=== PATIENT | male | born 1975 | race Two or more races ===

== ENCOUNTER 2018-12-24 07:26 | Inpatient (IN) | payer OTHER ==
[2018-12-24 07:43] VITALS: BMI 34.3
[2018-12-24] MEDS ORDERED: KETOROLAC TROMETHAMINE 30 MG/1 ML VIAL IM ONE (08:08)
[2018-12-24] MEDS ORDERED: LIDOCAINE 5% TOPICAL PATCH TP ONE (08:08)
[2018-12-24] MEDS ORDERED: LIDOCAINE 5% TOPICAL PATCH ONE (08:14)
--- NOTE | 2018-12-24 08:14 | PDOC ---
History of Present Illness - General Chief Complaint: Back Pain Stated Complaint: BACK PAIN Time Seen by Provider: 12/24/18 07:41 Exam Limitations: Language Barrier (Anguillan speaking only) - History of Present Illness Initial Comments: 12/24/18 08:08 43 yo M PMH appendicitis 3 years ago s/p appendectomy, sciatica diagnosed 4 years ago, coming in with L lower back pain shooting down his L leg. Primarily Anguillan speaking, little [place]. States that it feels like his normal sciatica pain but much more intense for the last 3 days, with 3 days of worsening pain before that. Apparently lifted some concrete 6 days ago. Went to [facility] yesterday where they have him Percocet and methylprednisolone. Patient states that he took the Percocet and it did not help at all, however he was worried the steroids were "like the ones for muscle building" and did not understand why they were prescribed, so he did not take them. Reports pain all the way in his toes, and can't move any part of his L leg without triggering terrible pain. Has been sleeping on his R side. Denies fevers/chills, constipation/diarrhea, urinary issues, IV drug use, weakness, loss of sensation. Endorses tingling and burning pain in his L toes. Past History - Past Medical History Allergies/Adverse Reactions: Allergies Allergy/AdvReac Type Severity Reaction Status Date / Time No Known Allergies Allergy Verified 12/24/18 07:43 COPD: No - Psycho Social/Smoking Cessation Hx Smoking History: Never smoked Have you smoked in the past 12 months: No Information on smoking cessation initiated: No Hx Alcohol Use: No Drug/Substance Use Hx: No Review of Systems - Review of Systems Constitutional: No: Chills, Diaphoresis, Fever HEENTM: No: Recent change in vision, Throat Pain, Mouth Swelling Respiratory: No: Cough, Shortness of Breath Cardiac (ROS): No: Chest Pain, Edema, Irregular Heart Rate, Lightheadedness, Palpitations, Syncope, Chest Tightness ABD/GI: No: Blood Streaked Bowels, Constipated, Diarrhea, Nausea, Rectal Bleeding, Vomiting : No: Burning, Dysuria, Discharge, Frequency, Flank Pain, Hematuria, Incontinence Musculoskeletal: Yes: Back Pain (L lower back, shooting down L leg). No: Neck Pain Neurological: Yes: Paresthesia (L toes). No: Headache, Weakness, Dizziness *Physical Exam - Vital Signs Last Vital Signs Temp Pulse Resp BP Pulse Ox 98 F 74 16 126/90 100 12/24/18 07:26 12/24/18 07:26 12/24/18 07:26 12/24/18 07:26 12/24/18 07:26 - Physical Exam Comments: 12/24/18 08:27 Gen: well-developed, well-nourished, appears to be in distress Neuro: AAOX4, CN II-XII intact, FTN intact, EOMI, PERRLA, sensation intact in all extremities. Significant pain with passive movement of any part of L leg, through to the toes HEENT: atraumatic, normocephalic, dry mucous membranes Neck: trachea midline, supple CV: regular rate, regular rhythm, no murmurs, rubs, or gallops Pulm: CTA b/l, no wheezing Abd: soft, non-distended, mild ttp in RLQ MSK: not moving L leg 2/2 pain, significant tenderness in L gluteus, intact pulses Extr: no edema, no deformities Skin: warm, dry ED Treatment Course - LABORATORY CBC & Chemistry Diagram: 12/24/18 10:39 12/24/18 10:39 Medical Decision Making - Medical Decision Making 12/24/18 08:30 Concern for worsened sciatica v muscle spasm. - have patient take prescribed steroid - toradol 30mg IM - lidocaine patch - reassess 12/24/18 09:42 Patient reassessed, pain improved, however, still unable to move L leg without significant pain. 12/24/18 10:09 Lumbar X ray without acute fracture. 12/24/18 11:36 Na 135 and WBC 12.2, otherwise unremarkable. 12/24/18 12:20 Spoke with hospitalist, patient will be admitted. Discharge - Discharge Information Problems reviewed: Yes Clinical Impression/Diagnosis: Neuropathy - Follow up/Referral - Patient Discharge Instructions - Post Discharge Activity
[2018-12-24] MEDS ORDERED: KETOROLAC TROMETHAMINE 30 MG/1 ML VIAL ONE (08:15)
--- NOTE | 2018-12-24 09:47 | PDOC ---
Attending Attestation - Resident Resident Name: Fransisco Calloway - ED Attending Attestation I have performed the following: I have examined & evaluated the patient, The case was reviewed & discussed with the resident, I agree w/resident's findings & plan - HPI HPI: 12/24/18 09:42 43-year-old male with history of lumbar radiculopathy recurring intermittently in the past, seen by shredding specialist and recommended for surgery but never had any interventions, presents now for persistent and worsening left low back pain with left leg radiation and paresthesias for the last week. Patient states he did some heavy lifting last week, started having some gradual onset and mild left low back pain about 6 days ago, was seen at outside urgent care and prescribed Percocet and Medrol Dosepak, minimal and temporary relief with Percocet but not taking the steroids, presents now for worsening symptoms and pain, inability to stand or ambulate since yesterday. No bowel or bladder issues, no direct injury, no fevers or chills. - Physicial Exam PE: 12/24/18 09:44 Vital signs normal Alert, seated in stretcher, mild distress secondary to left low back pain Heart and lungs are clear, abdomen benign No midline spine tenderness, some reproducible tenderness to the left low back without swelling or bruising 4 out of 5 strength of the left hip and knee, question limited by pain. 5 out of 5 plantar and dorsiflexion of the left foot. Sensation decreased distally, neurovascularly intact otherwise. - Medical Decision Making 12/24/18 09:45 43-year-old male with exacerbation of likely acute on chronic left lumbar radiculopathy, positive associated paresthesias and weakness, possibly pain related versus compression. No evidence of cord compression, no direct injury, no fevers or chills. Spine imaging Pain control We will need to reassess, if patient remains unable to ambulate and with decreased strength, may need admission for more acute evaluation with MRI and intervention. 12/24/18 11:43 minimal relief after meds, unable to stand/walk. Will proceed with admission, pain management and spine consults.
[2018-12-24] MEDS ORDERED: diazePAM 5 MG TABLET PO ONE (10:16)
[2018-12-24] MEDS ORDERED: diazePAM 5 MG TABLET ONE (10:27)
[2018-12-24 11:22] LABS: BASO % 0.3 % (0-2.0); EOS % 0.5 % (0-4.5); HEMATOCRIT 42.7 % (35.4-49); HEMOGLOBIN 14.9 GM/dL (11.7-16.9); LYMPH % 19.4 % (8-40); MCH 30.9 pg (25.7-33.7); MEAN CELL VOLUME 88.4 fl (80-96); MEAN PLT VOLUME 8.6 fl (7.5-11.1); MONO % 5.6 % (3.8-10.2); NEUT % 74.2 % (42.8-82.8); PLATELET COUNT 307 K/MM3 (134-434); RBC 4.83 M/mm3 (4.00-5.60); RDW 13.1 % (11.9-15.9); WHITE BLOOD COUNT 12.2 K/mm3 (4.0-10.0)
[2018-12-24 11:25] LABS: ALBUMIN 3.8 g/dl (3.4-5.0); BILIRUBIN,TOTAL 1.1 mg/dL (0.2-1); BLOOD UREA NITROGEN 20.2 mg/dL (7-18); CREATININE 1.1 mg/dL (0.55-1.3); POTASSIUM 3.9 mmol/L (3.5-5.1); TOT PROT 7.4 g/dl (6.4-8.2)
[2018-12-24] MEDS ORDERED: ACETAMINOPHEN 325 MG TABLET (FP) PO PRN (15:41)
--- NOTE | 2018-12-24 15:42 | HP ---
CHIEF COMPLAINT: left leg pain, numbness and tingling and inability to ambulate. also severe left leg pain PCP: no pcp HISTORY OF PRESENT ILLNESS: Patient is a 43 year old male with a past medical medical history of back pain , lumbar radiculopathy and appendectomy. He is on no home medications. he comes to the ED today with complaints of inability to ambulate or work secondary to worsening back and left leg pain. He reports that in the past he has seen by a clinical review specialist and was told that he may need surgical interventions but has not yet followed up. 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 Patient went to [facility] and prescribed Percocet and Medrol Dosepak, but only took the percocet with minimal relief. He did not want to take the steriods because he was unsure how they would help him. He denies any trauma or direct injury. He states that he is unable to walk and is only comfortable when he lays on his right side. He denies fever, chills, chest pain, constipation or bowel and bladder incontinence. ER course was notable for: (1) wbc 12.2 (2) unable to move L leg without significant pain. (3) Lumbar X ray without acute fracture. (4) NA 135 Recent Travel: none PAST MEDICAL/Surgical HISTORY: back pain, lumbar radiculopathy and appendectomy Social History: Smoking: denies Alcohol: denies Drugs: denies Allergies No Known Allergies Allergy (Verified 12/24/18 07:43) PHYSICAL EXAMINATION Vital Signs - 24 hr 12/24/18 07:26 Temperature 98 F Pulse Rate 74 Respiratory 16 Rate Blood Pressure 126/90 O2 Sat by Pulse 100 Oximetry (%) GENERAL: Awake, alert, and fully oriented, in no acute distress. HEAD: Normal with no signs of trauma. EYES: Pupils equal, round and reactive to light, extraocular movements intact, sclera anicteric, conjunctiva clear. No lid lag. EARS, NOSE, THROAT: Ears normal, nares patent, oropharynx clear without exudates. Moist mucous membranes. NECK: Normal range of motion, supple without lymphadenopathy, JVD, or masses. LUNGS: Breath sounds equal, clear to auscultation bilaterally. No wheezes, and no crackles. No accessory muscle use. HEART: Regular rate and rhythm, normal S1 and S2 without murmur, rub or gallop. ABDOMEN: Soft, nontender, not distended, normoactive bowel sounds, no guarding, no rebound, no masses. No hepatomegaly or splenomegaly. MUSCULOSKELETAL: Normal range of motion at all joints. No bony deformities or tenderness. No CVA tenderness. UPPER EXTREMITIES: 2+ pulses, warm, well-perfused. No cyanosis. No clubbing. LOWER EXTREMITIES: unable to move left leg without significant pain. mild edema of left foot. NEUROLOGICAL: Normal speech. unable to ambulate 2/2 left leg pain PSYCHIATRIC: Cooperative. Good eye contact. Appropriate mood and affect. Laboratory Results - last 24 hr 12/24/18 12/24/18 10:39 10:39 WBC 12.2 H RBC 4.83 Hgb 14.9 Hct 42.7 MCV 88.4 MCH 30.9 MCHC 35.0 RDW 13.1 Plt Count 307 MPV 8.6 Absolute Neuts (auto) 9.1 H Neutrophils % 74.2 Lymphocytes % 19.4 Monocytes % 5.6 Eosinophils % 0.5 Basophils % 0.3 Nucleated RBC % 0 Sodium 135 L Potassium 3.9 Chloride 100 Carbon Dioxide 28 Anion Gap 8 BUN 20.2 H Creatinine 1.1 Est GFR (CKD-EPI)AfAm 94.79 Est GFR (CKD-EPI)NonAf 81.78 Random Glucose 167 H Calcium 9.0 Total Bilirubin 1.1 H AST 23 ALT 56 Alkaline Phosphatase 79 Total Protein 7.4 Albumin 3.8 ASSESSMENT/PLAN: Problem List - Problem (1) Ambulatory dysfunction Assessment/Plan: Lumbar X ray without acute fracture will order physical therapy manage pain with lidocaine patches, gabapentin, tylenol and ketolorac injections neurosx consulted maintain fall risk precautions. heparin bid Code(s): R26.2 - DIFFICULTY IN WALKING, NOT ELSEWHERE CLASSIFIED (2) Hyperglycemia Assessment/Plan: elevated serum glucose a1c in am Code(s): R73.9 - HYPERGLYCEMIA, UNSPECIFIED (3) Neuropathy Assessment/Plan: start on gabapentin, pain management Code(s): G62.9 - POLYNEUROPATHY, UNSPECIFIED (4) Leukocytosis Assessment/Plan: leukocytosis likely reactive monitor Code(s): D72.829 - ELEVATED WHITE BLOOD CELL COUNT, UNSPECIFIED (5) Prophylactic measure Assessment/Plan: fen tolerates po monitor electrolytes full code heparin bid Code(s): Z29.9 - ENCOUNTER FOR PROPHYLACTIC MEASURES, UNSPECIFIED Visit type - Emergency Visit Emergency Visit: Yes ED Registration Date: 12/24/18 Care time: The patient presented to the Emergency Department on the above date and was hospitalized for further evaluation of their emergent condition. - New Patient This patient is new to me today: Yes Date on this admission: 12/25/18 - Critical Care Critical Care patient: No
[2018-12-24] MEDS: GABAPENTIN 100 MG CAPSULE (FP) PO SCH ×2 (16:19→21:46)
[2018-12-24] MEDS: KETOROLAC TROMETHAMINE 15 MG/ML VIAL IVPUSH PRN ×2 (16:19→23:21)
[2018-12-24] MEDS ORDERED: FLU VACCINE QUAD 60 MCG/0.5 ML (MDV 19-20) IM ONE (17:01)
[2018-12-24 17:24] LABS: PH,URINE 7.5 (5.0-8.0); URINE APPEARANCE CLEAR; URINE BILIRUBIN NEGATIVE (NEGATIVE); URINE COLOR YELLOW; URINE GLUCOSE (UA) NEGATIVE (NEGATIVE); URINE KETONE NEGATIVE (NEGATIVE); URINE LEUK ESTERASE NEGATIVE (NEGATIVE); URINE NITRITE NEGATIVE (NEGATIVE); URINE PROTEIN NEGATIVE (NEGATIVE); URINE UROBILINOGEN 0.2 mg/dL (0.2-1.0)
[2018-12-24] MEDS: POLYETHYLENE GLYCOL 3350 119 GM BTL PO SCH (19:01)
[2018-12-24] MEDS: oxyCODONE HCL 5 MG TABLET PO PRN (20:15)
[2018-12-24] MEDS: ACETAMINOPHEN 325 MG TABLET (FP) PO PRN (20:18)
[2018-12-24] MEDS: HEPARIN NA (PORCINE) 5,000 UNITS/ML 1ML VIAL SQ SCH (21:46)
[2018-12-24] MEDS: DOCUSATE SODIUM 100 MG CAPSULE (FP) PO SCH (21:46)
[2018-12-24] MEDS ORDERED: LIDOCAINE PATCH REMOVAL MC SCH (22:00)
[2018-12-24] MEDS ORDERED: diazePAM 5 MG TABLET PO SCH (22:00)
[2018-12-24] MEDS: diazePAM 5 MG TABLET PO PRN (23:28)
[2018-12-25] MEDS: oxyCODONE HCL 5 MG TABLET PO PRN ×4 (03:19→22:01)
[2018-12-25] MEDS: ACETAMINOPHEN 325 MG TABLET (FP) PO PRN ×4 (03:21→22:02)
[2018-12-25] MEDS: KETOROLAC TROMETHAMINE 15 MG/ML VIAL IVPUSH PRN (05:28)
[2018-12-25] MEDS: DOCUSATE SODIUM 100 MG CAPSULE (FP) PO SCH ×3 (06:16→21:50)
[2018-12-25] MEDS: GABAPENTIN 100 MG CAPSULE (FP) PO SCH ×2 (06:17→15:01)
--- NOTE | 2018-12-25 08:02 | CONSULT ---
Consult - text type - Consultation Consultation Note: NEUROSURGERY CONSULTATION Narciso Dodson is a 43 year old Latin male with a long history of back and leg pains who manifested an acute exacerbation last week without antecedent accident or injury. Over a 4 day period, he had progressively severe back and Left lower extremity radicular pain which has not responded to analgesics and rest. He was seen and imaged at [facility] 3 days ago and was offered some type of surgical procedure. He presented to the [facility] ER last evening with worsening pain and limitation on his ambulation. He was admitted and plain film radiographs were obtained which were generally unremarkable. 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 He has no bowel or bladder dysfunction. Neurosurgical decision making will need to await review of his MRI
[2018-12-25 08:23] LABS: BASO % 0.4 % (0-2.0); EOS % 1.5 % (0-4.5); HEMATOCRIT 41.8 % (35.4-49); HEMOGLOBIN 14.7 GM/dL (11.7-16.9); LYMPH % 36.2 % (8-40); MCHC 35.1 g/dl (32.0-35.9); MEAN CELL VOLUME 88.2 fl (80-96); MEAN PLT VOLUME 8.7 fl (7.5-11.1); MONO % 7.9 % (3.8-10.2); PLATELET COUNT 268 K/MM3 (134-434); RBC 4.75 M/mm3 (4.00-5.60); WHITE BLOOD COUNT 8.7 K/mm3 (4.0-10.0)
--- NOTE | 2018-12-25 09:13 | PN ---
Physical Exam: SUBJECTIVE: Patient seen and examined at the bedside. reports pain is severe and pain medications wear out very quickly. Could not sleep last night. He reports when he went to [facility] they only did xrays not an MRI. OBJECTIVE: started on oxycodone 5 overnight for uncontrolled pain. Patient is a 43 year old male with a past medical medical history of back pain , lumbar radiculopathy and appendectomy. He is on no home medications. he comes to the ED with complaints of inability to ambulate or work secondary to worsening back and left leg pain. He reports that in the past he has seen by a records specialist and was told that he may need surgical interventions but has not yet followed up. 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 Patient went to [facility] and prescribed Percocet and Medrol Dosepak, but only took the percocet with minimal relief. He did not want to take the steriods because he was unsure how they would help him. He denies any trauma or direct injury. He states that he is unable to walk and is only comfortable when he lays on his right side. Vital Signs Period Temp Pulse Resp BP Sys/Gordon Pulse Ox Last 24 Hr 97.7 F-98.4 F 76-96 16-20 102-134/58-93 100-100 GENERAL: Awake, alert, and fully oriented, in no acute distress. HEAD: Normal with no signs of trauma. EYES: Pupils equal, round and reactive to light, extraocular movements intact, sclera anicteric, conjunctiva clear. No lid lag. EARS, NOSE, THROAT: Ears normal, nares patent, oropharynx clear without exudates. Moist mucous membranes. NECK: Normal range of motion, supple without lymphadenopathy, JVD, or masses. LUNGS: Breath sounds equal, clear to auscultation bilaterally. No wheezes, and no crackles. No accessory muscle use. HEART: Regular rate and rhythm, normal S1 and S2 without murmur, rub or gallop. ABDOMEN: Soft, nontender, not distended, normoactive bowel sounds, no guarding, no rebound, no masses. No hepatomegaly or splenomegaly. MUSCULOSKELETAL: Normal range of motion at all joints. No bony deformities or tenderness. No CVA tenderness. UPPER EXTREMITIES: 2+ pulses, warm, well-perfused. No cyanosis. No clubbing. LOWER EXTREMITIES: unable to move left leg without significant pain. mild edema of left foot. NEUROLOGICAL: Normal speech. unable to ambulate 2/2 left leg pain PSYCHIATRIC: Cooperative. Good eye contact. Appropriate mood and affect. Laboratory Results - last 24 hr 12/24/18 12/24/18 12/24/18 10:39 10:39 16:00 WBC 12.2 H RBC 4.83 Hgb 14.9 Hct 42.7 MCV 88.4 MCH 30.9 MCHC 35.0 RDW 13.1 Plt Count 307 MPV 8.6 Absolute Neuts (auto) 9.1 H Neutrophils % 74.2 Lymphocytes % 19.4 Monocytes % 5.6 Eosinophils % 0.5 Basophils % 0.3 Nucleated RBC % 0 Sodium 135 L Potassium 3.9 Chloride 100 Carbon Dioxide 28 Anion Gap 8 BUN 20.2 H Creatinine 1.1 Est GFR (CKD-EPI)AfAm 94.79 Est GFR (CKD-EPI)NonAf 81.78 Random Glucose 167 H Calcium 9.0 Total Bilirubin 1.1 H AST 23 ALT 56 Alkaline Phosphatase 79 Total Protein 7.4 Albumin 3.8 Urine Color Yellow Urine Appearance Clear Urine pH 7.5 Ur Specific [place] 1.008 L Urine Protein Negative Urine Glucose (UA) Negative Urine Ketones Negative Urine Blood Negative Urine Nitrite Negative Urine Bilirubin Negative Urine Urobilinogen 0.2 Ur Leukocyte Esterase Negative 12/25/18 06:30 WBC 8.7 RBC 4.75 Hgb 14.7 Hct 41.8 MCV 88.2 MCH 31.0 MCHC 35.1 RDW 13.0 Plt Count 268 MPV 8.7 Absolute Neuts (auto) 4.7 Neutrophils % 54.0 D Lymphocytes % 36.2 D Monocytes % 7.9 Eosinophils % 1.5 D Basophils % 0.4 Nucleated RBC % 0 Sodium Potassium Chloride Carbon Dioxide Anion Gap BUN Creatinine Est GFR (CKD-EPI)AfAm Est GFR (CKD-EPI)NonAf Random Glucose Calcium Total Bilirubin AST ALT Alkaline Phosphatase Total Protein Albumin Urine Color Urine Appearance Urine pH Ur Specific [place] Urine Protein Urine Glucose (UA) Urine Ketones Urine Blood Urine Nitrite Urine Bilirubin Urine Urobilinogen Ur Leukocyte Esterase Active Medications Generic Name Dose Route Start Last Admin Trade Name Freq PRN Reason Stop Dose Admin Acetaminophen 325 mg 12/24/18 20:07 12/25/18 03:21 Tylenol - PO 12/27/18 20:06 325 mg Q4H PRN Administration PAIN LEVEL 7 - 10 Diazepam 5 mg 12/24/18 17:32 12/24/18 23:28 Valium - PO 5 mg Q24H PRN Administration spasms Docusate Sodium 100 mg 12/24/18 22:00 12/25/18 06:16 Colace - PO 100 mg TID BETTYE Administration Gabapentin 100 mg 12/24/18 15:45 12/25/18 06:17 Neurontin - PO 100 mg TID BETTYE Administration Heparin Sodium (Porcine) 5,000 unit 12/24/18 22:00 12/24/18 21:46 Heparin - SQ 5,000 unit BID [facility] Administration Ketorolac Tromethamine 15 mg 12/24/18 15:39 12/25/18 05:28 Toradol Injection - IVPUSH 12/29/18 15:38 15 mg Q6H PRN Administration PAIN LEVEL 4 - 6 Lidocaine 1 patch 12/25/18 10:00 Lidoderm Patch - TP DAILY [facility] Miscellaneous 1 each 12/25/18 22:00 Lidoderm Patch Removal MC DAILY@2200 [facility] Oxycodone HCl 5 mg 12/24/18 20:07 12/25/18 03:19 Roxicodone - PO 5 mg Q4H PRN Administration PAIN LEVEL 7 - 10 Polyethylene Glycol 17 gm 12/24/18 16:15 12/24/18 19:01 Miralax (For Daily Use) - PO 17 grams DAILY BETTYE Administration ASSESSMENT/PLAN: Problem List - Problems (1) Ambulatory dysfunction Assessment/Plan: Lumbar X ray without acute fracture. Will order lumbar spine MRI. physical therapy ordered manage pain with lidocaine patches, gabapentin, flexiril and oxycodone prn neurosx consulted maintain fall risk precautions. heparin bid Code(s): R26.2 - DIFFICULTY IN WALKING, NOT ELSEWHERE CLASSIFIED (2) Hyperglycemia Assessment/Plan: elevated serum glucose a1c pending Code(s): R73.9 - HYPERGLYCEMIA, UNSPECIFIED (3) Neuropathy Assessment/Plan: on gabapentin, pain management Code(s): G62.9 - POLYNEUROPATHY, UNSPECIFIED (4) Leukocytosis Assessment/Plan: leukocytosis likely reactive monitor Code(s): D72.829 - ELEVATED WHITE BLOOD CELL COUNT, UNSPECIFIED (5) Prophylactic measure Assessment/Plan: fen tolerates po monitor electrolytes full code heparin bid Code(s): Z29.9 - ENCOUNTER FOR PROPHYLACTIC MEASURES, UNSPECIFIED Visit type - Emergency Visit Emergency Visit: Yes ED Registration Date: 12/24/18 Care time: The patient presented to the Emergency Department on the above date and was hospitalized for further evaluation of their emergent condition. - New Patient This patient is new to me today: No - Critical Care Critical Care patient: No - Discharge Referral Referred to [facility] Med [facility] No
[2018-12-25 09:28] LABS: ALBUMIN 3.6 g/dl (3.4-5.0); BILIRUBIN,TOTAL 1.1 mg/dL (0.2-1); BLOOD UREA NITROGEN 21.9 mg/dL (7-18); CALCIUM 8.9 mg/dL (8.5-10.1); CREATININE 1.1 mg/dL (0.55-1.3); MAGNESIUM 2.4 mg/dL (1.8-2.4); POTASSIUM 4.3 mmol/L (3.5-5.1)
[2018-12-25 09:49] LABS: ANISOCYTOSIS 0; MACROCYTOSIS 0; PLATELET ESTIMATE NORMAL
[2018-12-25] MEDS: HEPARIN NA (PORCINE) 5,000 UNITS/ML 1ML VIAL SQ SCH ×2 (10:40→21:50)
[2018-12-25] MEDS: LIDOCAINE 5% TOPICAL PATCH TP SCH (10:40)
[2018-12-25] MEDS: POLYETHYLENE GLYCOL 3350 119 GM BTL PO SCH (10:45)
[2018-12-25] MEDS ORDERED: diazePAM 2 MG TABLET PO ONE (14:21)
[2018-12-25] MEDS: CYCLOBENZAPRINE HCL 5 MG TABLET PO SCH ×2 (15:01→21:50)
[2018-12-26] MEDS: LIDOCAINE PATCH REMOVAL MC SCH ×2 (01:05→22:56)
[2018-12-26] MEDS: GABAPENTIN 100 MG CAPSULE (FP) PO SCH ×4 (01:07→21:13)
[2018-12-26] MEDS: oxyCODONE HCL 5 MG TABLET PO PRN ×4 (02:52→21:18)
[2018-12-26] MEDS: DOCUSATE SODIUM 100 MG CAPSULE (FP) PO SCH ×3 (07:08→21:13)
[2018-12-26] MEDS: CYCLOBENZAPRINE HCL 5 MG TABLET PO SCH ×3 (07:09→22:14)
[2018-12-26 08:36] LABS: BASO % 0.5 % (0-2.0); EOS % 2.3 % (0-4.5); HEMATOCRIT 42.1 % (35.4-49); LYMPH % 24.2 % (8-40); MCH 31.5 pg (25.7-33.7); MCHC 35.6 g/dl (32.0-35.9); MEAN CELL VOLUME 88.6 fl (80-96); MEAN PLT VOLUME 8.4 fl (7.5-11.1); PLATELET COUNT 283 K/MM3 (134-434); RBC 4.76 M/mm3 (4.00-5.60); RDW 13.1 % (11.9-15.9); WHITE BLOOD COUNT 9.6 K/mm3 (4.0-10.0)
[2018-12-26 08:48] LABS: ALBUMIN 3.6 g/dl (3.4-5.0); BILIRUBIN,TOTAL 1.1 mg/dL (0.2-1); BLOOD UREA NITROGEN 20.8 mg/dL (7-18); CALCIUM 8.9 mg/dL (8.5-10.1); CREATININE 1.2 mg/dL (0.55-1.3); MAGNESIUM 2.3 mg/dL (1.8-2.4); POTASSIUM 4.4 mmol/L (3.5-5.1); TOT PROT 7.1 g/dl (6.4-8.2)
[2018-12-26] MEDS ORDERED: PT OWN MED DRAWER 7, Y5N ONE (09:43)
[2018-12-26] MEDS: SODIUM CHLORIDE 1,000 ML IV SCH (09:50)
[2018-12-26] MEDS: HEPARIN NA (PORCINE) 5,000 UNITS/ML 1ML VIAL SQ SCH ×2 (09:50→21:13)
[2018-12-26] MEDS: LIDOCAINE 5% TOPICAL PATCH TP SCH (09:50)
[2018-12-26] MEDS: POLYETHYLENE GLYCOL 3350 119 GM BTL PO SCH (09:51)
[2018-12-26] MEDS: ACETAMINOPHEN 325 MG TABLET (FP) PO PRN ×2 (12:50→21:19)
--- NOTE | 2018-12-26 16:40 | PN ---
Physical Exam: SUBJECTIVE: Patient seen and examined at the bedside. reports improvement of moving his left leg. pain being managed, but has not yet participated with PT. OBJECTIVE: Patient is a 43 year old male with a past medical medical history of back pain , lumbar radiculopathy and appendectomy. He is on no home medications. he comes to the ED with complaints of inability to ambulate or work secondary to worsening back and left leg pain. He reports that in the past he has seen by a control systems specialist and was told that he may need surgical interventions but has not yet followed up. 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 Patient went to [facility] and prescribed Percocet and Medrol Dosepak, but only took the percocet with minimal relief. He did not want to take the steriods because he was unsure how they would help him. He denies any trauma or direct injury. He states that he is unable to walk and is only comfortable when he lays on his right side. imaging: lumbar spine MRI: (1) at l4-l5 there is a central and bilateral disc herniation larger on the right deforming the sac and appears to be reaching the right L5 root (2) at l3-l4 there is a small central and slightly left sided disc herniation mildly deforming the sac (3) at L5-S1 there is a small central and slightly right sided disc herniation. Vital Signs Period Temp Pulse Resp BP Sys/Gordon Pulse Ox Last 24 Hr 98.3 F-98.6 F 81-118 18-18 115-134/63-73 99 GENERAL: Awake, alert, and fully oriented, in no acute distress. HEAD: Normal with no signs of trauma. EYES: Pupils equal, round and reactive to light, extraocular movements intact, sclera anicteric, conjunctiva clear. No lid lag. EARS, NOSE, THROAT: Ears normal, nares patent, oropharynx clear without exudates. Moist mucous membranes. NECK: Normal range of motion, supple without lymphadenopathy, JVD, or masses. LUNGS: Breath sounds equal, clear to auscultation bilaterally. No wheezes, and no crackles. No accessory muscle use. HEART: Regular rate and rhythm, normal S1 and S2 without murmur, rub or gallop. ABDOMEN: Soft, nontender, not distended, normoactive bowel sounds, no guarding, no rebound, no masses. No hepatomegaly or splenomegaly. MUSCULOSKELETAL: Normal range of motion at all joints. No bony deformities or tenderness. No CVA tenderness. UPPER EXTREMITIES: 2+ pulses, warm, well-perfused. No cyanosis. No clubbing. LOWER EXTREMITIES: better movement of the left leg without significant pain. mild edema of left foot, no falls NEUROLOGICAL: Normal speech. unable to ambulate 2/2 left leg pain PSYCHIATRIC: Cooperative. Good eye contact. Appropriate mood and affect. Laboratory Results - last 24 hr 12/25/18 12/26/18 12/26/18 06:30 07:00 07:00 WBC 9.6 RBC 4.76 Hgb 15.0 Hct 42.1 MCV 88.6 MCH 31.5 MCHC 35.6 RDW 13.1 Plt Count 283 MPV 8.4 Absolute Neuts (auto) 6.1 Neutrophils % 64.0 Lymphocytes % 24.2 D Monocytes % 9.0 Eosinophils % 2.3 Basophils % 0.5 Nucleated RBC % 0 Sodium 136 Potassium 4.4 Chloride 98 Carbon Dioxide 31 Anion Gap 8 BUN 20.8 H Creatinine 1.2 Est GFR (CKD-EPI)AfAm 85.32 Est GFR (CKD-EPI)NonAf 73.62 Random Glucose 106 Hemoglobin A1c % 5.4 Calcium 8.9 Magnesium 2.3 Total Bilirubin 1.1 H AST 26 ALT 78 H Alkaline Phosphatase 78 Total Protein 7.1 Albumin 3.6 Active Medications Generic Name Dose Route Start Last Admin Trade Name Freq PRN Reason Stop Dose Admin Acetaminophen 325 mg 12/24/18 20:07 12/26/18 12:50 Tylenol - PO 12/27/18 20:06 325 mg Q4H PRN Administration PAIN LEVEL 7 - 10 Cyclobenzaprine HCl 5 mg 12/25/18 14:00 12/26/18 14:50 Cyclobenzaprine Hcl PO 5 mg TID BETTYE Administration Diazepam 5 mg 12/24/18 17:32 12/24/18 23:28 Valium - PO 5 mg Q24H PRN Administration spasms Docusate Sodium 100 mg 12/24/18 22:00 12/26/18 14:51 Colace - PO 100 mg TID BETTYE Administration Gabapentin 100 mg 12/24/18 15:45 12/26/18 14:50 Neurontin - PO 100 mg TID BETTYE Administration Heparin Sodium (Porcine) 5,000 unit 12/24/18 22:00 12/26/18 09:50 Heparin - SQ 5,000 unit BID BETTYE Administration Sodium Chloride 1,000 mls @ 100 mls/hr 12/26/18 09:15 12/26/18 09:50 Normal Saline - IV 100 mls/hr ASDIR BETTYE Administration Lidocaine 1 patch 12/25/18 10:00 12/26/18 09:50 Lidoderm Patch - TP 1 patch DAILY BETTYE Administration Miscellaneous 1 each 12/25/18 22:00 12/26/18 01:05 Lidoderm Patch Removal MC 1 each DAILY@2200 BETTYE Administration Oxycodone HCl 10 mg 12/25/18 09:21 12/26/18 12:50 Roxicodone - PO 10 mg Q4H PRN Administration PAIN LEVEL 7 - 10 Polyethylene Glycol 17 gm 12/24/18 16:15 12/26/18 09:51 Miralax (For Daily Use) - PO 17 grams DAILY BETTYE Administration ASSESSMENT/PLAN: Problem List - Problems (1) Ambulatory dysfunction Assessment/Plan: Lumbar X ray without acute fracture. Lumbar spine with multiple disc herniations seen on imaging. see above. physical therapy ordered, but unable to yet participate 2/2 to pain. patient to be pre medicated prior to pt manage pain with lidocaine patches, gabapentin, flexiril and oxycodone prn neurosx consulted and following maintain fall risk precautions. heparin bid Code(s): R26.2 - DIFFICULTY IN WALKING, NOT ELSEWHERE CLASSIFIED (2) Hyperglycemia Assessment/Plan: elevated serum glucose on admission, now normal, a1c at acceptable ranges. Code(s): R73.9 - HYPERGLYCEMIA, UNSPECIFIED (3) Neuropathy Assessment/Plan: on gabapentin, pain management Code(s): G62.9 - POLYNEUROPATHY, UNSPECIFIED (4) Leukocytosis Assessment/Plan: leukocytosis resolved. monitor Code(s): D72.829 - ELEVATED WHITE BLOOD CELL COUNT, UNSPECIFIED (5) Prophylactic measure Assessment/Plan: fen tolerates po monitor electrolytes full code heparin bid Code(s): Z29.9 - ENCOUNTER FOR PROPHYLACTIC MEASURES, UNSPECIFIED Visit type - Emergency Visit Emergency Visit: Yes ED Registration Date: 12/24/18 Care time: The patient presented to the Emergency Department on the above date and was hospitalized for further evaluation of their emergent condition. - New Patient This patient is new to me today: No - Critical Care Critical Care patient: No - Discharge Referral Referred to [facility] Med P.C.: No
[2018-12-27] MEDS: oxyCODONE HCL 5 MG TABLET PO PRN ×4 (02:48→23:28)
[2018-12-27] MEDS: ACETAMINOPHEN 325 MG TABLET (FP) PO PRN ×3 (02:49→15:11)
[2018-12-27] MEDS: GABAPENTIN 100 MG CAPSULE (FP) PO SCH ×3 (05:15→21:21)
[2018-12-27] MEDS: CYCLOBENZAPRINE HCL 5 MG TABLET PO SCH ×3 (05:15→21:20)
[2018-12-27] MEDS: DOCUSATE SODIUM 100 MG CAPSULE (FP) PO SCH ×3 (05:15→21:20)
[2018-12-27 08:58] LABS: BASO % 0.5 % (0-2.0); EOS % 3.7 % (0-4.5); HEMOGLOBIN 15.2 GM/dL (11.7-16.9); LYMPH % 37.9 % (8-40); MCH 30.8 pg (25.7-33.7); MCHC 35.4 g/dl (32.0-35.9); MEAN CELL VOLUME 86.9 fl (80-96); MEAN PLT VOLUME 7.8 fl (7.5-11.1); NEUT % 48.9 % (42.8-82.8); PLATELET COUNT 274 K/MM3 (134-434); RBC 4.95 M/mm3 (4.00-5.60); RDW 13.1 % (11.9-15.9); WHITE BLOOD COUNT 6.1 K/mm3 (4.0-10.0)
[2018-12-27 09:31] LABS: ALBUMIN 3.7 g/dl (3.4-5.0); BILIRUBIN,TOTAL 1.5 mg/dL (0.2-1); BLOOD UREA NITROGEN 14.4 mg/dL (7-18); CALCIUM 9.1 mg/dL (8.5-10.1); CREATININE 1.1 mg/dL (0.55-1.3); POTASSIUM 4.4 mmol/L (3.5-5.1); TOT PROT 7.6 g/dl (6.4-8.2)
[2018-12-27] MEDS: HEPARIN NA (PORCINE) 5,000 UNITS/ML 1ML VIAL SQ SCH ×2 (09:48→21:21)
[2018-12-27] MEDS: SODIUM CHLORIDE 1,000 ML IV SCH (09:48)
[2018-12-27] MEDS: LIDOCAINE 5% TOPICAL PATCH TP SCH (09:48)
[2018-12-27] MEDS: POLYETHYLENE GLYCOL 3350 119 GM BTL PO SCH (09:54)
--- NOTE | 2018-12-27 15:09 | PN ---
Physical Exam: SUBJECTIVE: Patient seen and examined. reports pain is more controlled. can lay in bed in better position, can be in wheelchair without pain. still cannot walk, can only stand with physical therapy. OBJECTIVE: Patient is a 43 year old male with a past medical medical history of back pain , lumbar radiculopathy and appendectomy. He is on no home medications. he comes to the ED on 12/24/18 with complaints of inability to ambulate or work secondary to worsening back and left leg pain. He reports that in the past he has seen by a military personnel specialist and was told that he may need surgical interventions but has not yet followed up. 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 Patient went to [facility] and prescribed Percocet and Medrol Dosepak, but only took the percocet with minimal relief. He denies any trauma or direct injury. He states that he is unable to walk and is only comfortable when he lays on his right side. imaging: lumbar spine MRI: (1) at l4-l5 there is a central and bilateral disc herniation larger on the right deforming the sac and appears to be reaching the right L5 root (2) at l3-l4 there is a small central and slightly left sided disc herniation mildly deforming the sac (3) at L5-S1 there is a small central and slightly right sided disc herniation. Vital Signs Period Temp Pulse Resp BP Sys/Gordon Pulse Ox Last 24 Hr 98.2 F-99.3 F 82-103 18-18 108-116/65-74 GENERAL: Awake, alert, and fully oriented, in no acute distress. HEAD: Normal with no signs of trauma. EYES: Pupils equal, round and reactive to light, extraocular movements intact, sclera anicteric, conjunctiva clear. No lid lag. EARS, NOSE, THROAT: Ears normal, nares patent, oropharynx clear without exudates. Moist mucous membranes. NECK: Normal range of motion, supple without lymphadenopathy, JVD, or masses. LUNGS: Breath sounds equal, clear to auscultation bilaterally. No wheezes, and no crackles. No accessory muscle use. HEART: Regular rate and rhythm, normal S1 and S2 without murmur, rub or gallop. ABDOMEN: Soft, nontender, not distended, normoactive bowel sounds, no guarding, no rebound, no masses. No hepatomegaly or splenomegaly. MUSCULOSKELETAL: Normal range of motion at all joints. No bony deformities or tenderness. No CVA tenderness. UPPER EXTREMITIES: 2+ pulses, warm, well-perfused. No cyanosis. No clubbing. LOWER EXTREMITIES: better movement of the left leg without significant pain. mild edema of left foot, no falls, no fracture on foot xray NEUROLOGICAL: Normal speech. unable to ambulate 2/2 left leg pain, can stand with physical therapy. PSYCHIATRIC: Cooperative. Good eye contact. Appropriate mood and affect. Laboratory Results - last 24 hr 12/27/18 12/27/18 08:40 08:40 WBC 6.1 RBC 4.95 Hgb 15.2 Hct 43.0 MCV 86.9 MCH 30.8 MCHC 35.4 RDW 13.1 Plt Count 274 MPV 7.8 Absolute Neuts (auto) 3.0 Neutrophils % 48.9 D Lymphocytes % 37.9 D Monocytes % 9.0 Eosinophils % 3.7 Basophils % 0.5 Nucleated RBC % 0 Sodium 136 Potassium 4.4 Chloride 98 Carbon Dioxide 32 Anion Gap 5 L BUN 14.4 Creatinine 1.1 Est GFR (CKD-EPI)AfAm 94.79 Est GFR (CKD-EPI)NonAf 81.78 Random Glucose 119 H Calcium 9.1 Total Bilirubin 1.5 H AST 41 H ALT 113 H Alkaline Phosphatase 90 Total Protein 7.6 Albumin 3.7 Active Medications Generic Name Dose Route Start Last Admin Trade Name Freq PRN Reason Stop Dose Admin Acetaminophen 325 mg 12/24/18 20:07 12/27/18 09:52 Tylenol - PO 12/27/18 20:06 325 mg Q4H PRN Administration PAIN LEVEL 7 - 10 Cyclobenzaprine HCl 5 mg 12/25/18 14:00 12/27/18 05:15 Cyclobenzaprine Hcl PO 5 mg TID BETTYE Administration Diazepam 5 mg 12/24/18 17:32 12/24/18 23:28 Valium - PO 5 mg Q24H PRN Administration spasms Docusate Sodium 100 mg 12/24/18 22:00 12/27/18 05:15 Colace - PO 100 mg TID BETTYE Administration Gabapentin 100 mg 12/24/18 15:45 12/27/18 05:15 Neurontin - PO 100 mg TID BETTYE Administration Heparin Sodium (Porcine) 5,000 unit 12/24/18 22:00 12/27/18 09:48 Heparin - SQ 5,000 unit BID BETTYE Administration Sodium Chloride 1,000 mls @ 100 mls/hr 12/26/18 09:15 12/27/18 09:48 Normal Saline - IV 100 mls/hr ASDIR BETTYE Administration Lidocaine 1 patch 12/25/18 10:00 12/27/18 09:48 Lidoderm Patch - TP 1 patch DAILY BETTYE Administration Miscellaneous 1 each 12/25/18 22:00 12/26/18 22:56 Lidoderm Patch Removal MC 1 each DAILY@2200 BETTYE Administration Oxycodone HCl 10 mg 12/25/18 09:21 12/27/18 09:53 Roxicodone - PO 10 mg Q4H PRN Administration PAIN LEVEL 7 - 10 Polyethylene Glycol 17 gm 12/24/18 16:15 12/27/18 09:54 Miralax (For Daily Use) - PO 17 grams DAILY BETTYE Administration ASSESSMENT/PLAN: Problem List - Problems (1) Ambulatory dysfunction Assessment/Plan: Lumbar X ray without acute fracture. Lumbar spine with multiple disc herniations seen on imaging. see above. physical therapy ordered, but unable to yet participate 2/2 to pain. patient to be pre medicated prior to pt manage pain with lidocaine patches, gabapentin, flexiril and oxycodone prn - overall improving on this regimen. can sit in WC now, still cannot walk. neurosx consulted and following maintain fall risk precautions. heparin bid Code(s): R26.2 - DIFFICULTY IN WALKING, NOT ELSEWHERE CLASSIFIED (2) Hyperglycemia Assessment/Plan: elevated serum glucose on admission, now normal, a1c at acceptable ranges. Code(s): R73.9 - HYPERGLYCEMIA, UNSPECIFIED (3) Neuropathy Assessment/Plan: on gabapentin, pain management Code(s): G62.9 - POLYNEUROPATHY, UNSPECIFIED (4) Leukocytosis Assessment/Plan: leukocytosis resolved. monitor Code(s): D72.829 - ELEVATED WHITE BLOOD CELL COUNT, UNSPECIFIED (5) Prophylactic measure Assessment/Plan: fen tolerates po monitor electrolytes full code heparin bid Code(s): Z29.9 - ENCOUNTER FOR PROPHYLACTIC MEASURES, UNSPECIFIED Visit type - Emergency Visit Emergency Visit: Yes ED Registration Date: 12/24/18 Care time: The patient presented to the Emergency Department on the above date and was hospitalized for further evaluation of their emergent condition. - New Patient This patient is new to me today: No - Critical Care Critical Care patient: No - Discharge Referral Referred to [facility] Med P.C.: No
--- NOTE | 2018-12-27 21:54 | PN ---
Progress Note (short form) - Note Progress Note: Patient is making gradual improvement over the past 48 hours. He is in far less pain and can move and shift within the bed with greater ease. He still cannot walk, however, he reports substantial overall improvement. MRI reviewed which shows degenerative changes at L34, L45 and L5S1 with disc bulges and ligamentous hypertrophy which causes multilevel nerve root irritation. Pathology on MRI is not severe enough to mandate urgent surgical intervention. Indeed, the patient is not eager to undergo surgery. I explained the absolute indications for surgery being bowel and bladder dysfunction and fixed motor deficits and the relative indication of intractable pain despite all conservative efforts. Given that the patient is improving and has neither bowel/bladder dysfunction nor fixed motor deficits, his desire to avoid surgery can/will be respected. Patient may benefit from epidural steroid injections and Physical Therapy. If patient's symptoms persist beyond 8-12 weeks or he develops bowel/bladder dysfunction or fixed motor deficits, we will re-evaluate the potential role for surgical intervention. At this time, there is no acute Neurosurgical intervention which is indicated or planned. This was described to the patient who was in agreement.
[2018-12-27] MEDS: LIDOCAINE PATCH REMOVAL MC SCH (23:37)
[2018-12-28] MEDS: diazePAM 5 MG TABLET PO PRN (00:09)
[2018-12-28] MEDS: oxyCODONE HCL 5 MG TABLET PO PRN ×2 (04:29→12:44)
[2018-12-28] MEDS: CYCLOBENZAPRINE HCL 5 MG TABLET PO SCH ×3 (06:01→22:36)
[2018-12-28] MEDS: DOCUSATE SODIUM 100 MG CAPSULE (FP) PO SCH ×3 (06:01→21:38)
[2018-12-28] MEDS: GABAPENTIN 100 MG CAPSULE (FP) PO SCH ×3 (06:01→21:38)
[2018-12-28] MEDS: LIDOCAINE 5% TOPICAL PATCH TP SCH (10:06)
[2018-12-28] MEDS: HEPARIN NA (PORCINE) 5,000 UNITS/ML 1ML VIAL SQ SCH ×2 (10:07→21:38)
[2018-12-28] MEDS: SODIUM CHLORIDE 1,000 ML IV SCH (10:07)
[2018-12-28] MEDS: POLYETHYLENE GLYCOL 3350 119 GM BTL PO SCH (10:11)
--- NOTE | 2018-12-28 11:31 | PN ---
Physical Exam: SUBJECTIVE: Patient seen and examined at the bedside. Was able to ambulate today with physical therapy from his bed to the door per PT notes. ambulated 15 feet, but reports severe pain of his left leg. He informed me that he wants to have surgery to help him ambulate. OBJECTIVE: Patient is a 43 year old male with a past medical medical history of back pain , lumbar radiculopathy and appendectomy. he comes to the ED on 12/24/18 with complaints of inability to ambulate or work secondary to worsening back and left leg pain. He reports that in the past he has seen by a computer systems support specialist and was told that he may need surgical interventions but has not yet followed up. 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 On admission he was unable to ambulate. imaging: lumbar spine MRI: (1) at l4-l5 there is a central and bilateral disc herniation larger on the right deforming the sac and appears to be reaching the right L5 root (2) at l3-l4 there is a small central and slightly left sided disc herniation mildly deforming the sac (3) at L5-S1 there is a small central and slightly right sided disc herniation. Vital Signs Period Temp Pulse Resp BP Sys/Gordon Pulse Ox Last 24 Hr 97.8 F-98.6 F 94-109 18-20 91-113/61-77 99 GENERAL: Awake, alert, and fully oriented, in no acute distress. HEAD: Normal with no signs of trauma. EYES: Pupils equal, round and reactive to light, extraocular movements intact, sclera anicteric, conjunctiva clear. No lid lag. EARS, NOSE, THROAT: Ears normal, nares patent, oropharynx clear without exudates. Moist mucous membranes. NECK: Normal range of motion, supple without lymphadenopathy, JVD, or masses. LUNGS: Breath sounds equal, clear to auscultation bilaterally. No wheezes, and no crackles. No accessory muscle use. HEART: Regular rate and rhythm, normal S1 and S2 without murmur, rub or gallop. ABDOMEN: Soft, nontender, not distended, normoactive bowel sounds, no guarding, no rebound, no masses. No hepatomegaly or splenomegaly. MUSCULOSKELETAL: Normal range of motion at all joints. No bony deformities or tenderness. No CVA tenderness. UPPER EXTREMITIES: 2+ pulses, warm, well-perfused. No cyanosis. No clubbing. LOWER EXTREMITIES: better movement of the left leg without significant pain. mild edema of left foot, no falls, no fracture on foot xray NEUROLOGICAL: Normal speech. poor ambulation, but slightly improving. PT ordered twice daily PSYCHIATRIC: Cooperative. Good eye contact. Appropriate mood and affect. Active Medications Generic Name Dose Route Start Last Admin Trade Name Freq PRN Reason Stop Dose Admin Cyclobenzaprine HCl 5 mg 12/25/18 14:00 12/28/18 06:01 Cyclobenzaprine Hcl PO 5 mg TID BETTYE Administration Diazepam 5 mg 12/24/18 17:32 12/28/18 00:09 Valium - PO 5 mg Q24H PRN Administration spasms Docusate Sodium 100 mg 12/24/18 22:00 12/28/18 06:01 Colace - PO 100 mg TID BETTYE Administration Gabapentin 100 mg 12/24/18 15:45 12/28/18 06:01 Neurontin - PO 100 mg TID BETTYE Administration Heparin Sodium (Porcine) 5,000 unit 12/24/18 22:00 12/28/18 10:07 Heparin - SQ 5,000 unit BID BETTYE Administration Lidocaine 1 patch 12/25/18 10:00 12/28/18 10:06 Lidoderm Patch - TP 1 patch DAILY BETTYE Administration Miscellaneous 1 each 12/25/18 22:00 12/27/18 23:37 Lidoderm Patch Removal MC 1 each DAILY@2200 BETTYE Administration Oxycodone HCl 10 mg 12/25/18 09:21 12/28/18 04:29 Roxicodone - PO 10 mg Q4H PRN Administration PAIN LEVEL 7 - 10 Polyethylene Glycol 17 gm 12/24/18 16:15 12/28/18 10:11 Miralax (For Daily Use) - PO 17 grams DAILY BETTYE Administration Prednisone 40 mg 12/28/18 11:30 Deltasone - PO 12/31/18 10:01 DAILY BETTYE ASSESSMENT/PLAN: Problem List - Problems (1) Ambulatory dysfunction Assessment/Plan: Lumbar X ray without acute fracture. Lumbar spine with multiple disc herniations seen on imaging. see above. physical therapy following and patient was able to ambulate 15 feet today. manage pain with lidocaine patches, gabapentin, flexiril and oxycodone prn - overall improving on this regimen. will give a trial of prednisone 40mg daily x 4 days and assess for improvement. maintain fall risk precautions. Neurosurgery following, further plans per neurosurgery heparin bid Code(s): R26.2 - DIFFICULTY IN WALKING, NOT ELSEWHERE CLASSIFIED (2) Hyperglycemia Assessment/Plan: elevated serum glucose on admission, now normal, a1c at acceptable ranges. Code(s): R73.9 - HYPERGLYCEMIA, UNSPECIFIED (3) Neuropathy Assessment/Plan: on gabapentin, pain management Code(s): G62.9 - POLYNEUROPATHY, UNSPECIFIED (4) Leukocytosis Assessment/Plan: leukocytosis resolved. monitor Code(s): D72.829 - ELEVATED WHITE BLOOD CELL COUNT, UNSPECIFIED (5) Prophylactic measure Assessment/Plan: fen tolerates po monitor electrolytes full code heparin bid Code(s): Z29.9 - ENCOUNTER FOR PROPHYLACTIC MEASURES, UNSPECIFIED Visit type - Emergency Visit Emergency Visit: Yes ED Registration Date: 12/24/18 Care time: The patient presented to the Emergency Department on the above date and was hospitalized for further evaluation of their emergent condition. - New Patient This patient is new to me today: No - Critical Care Critical Care patient: No - Discharge Referral Referred to [facility] Med P.C.: No
[2018-12-28] MEDS: predniSONE 20 MG TABLET (UD) PO SCH (12:43)
[2018-12-28] MEDS: LIDOCAINE PATCH REMOVAL MC SCH (22:37)
[2018-12-29] MEDS: oxyCODONE HCL 5 MG TABLET PO PRN ×3 (06:10→21:55)
[2018-12-29] MEDS: DOCUSATE SODIUM 100 MG CAPSULE (FP) PO SCH ×3 (06:11→21:46)
[2018-12-29] MEDS: GABAPENTIN 100 MG CAPSULE (FP) PO SCH ×3 (06:12→21:46)
[2018-12-29] MEDS: CYCLOBENZAPRINE HCL 5 MG TABLET PO SCH ×3 (06:12→21:46)
--- NOTE | 2018-12-29 08:40 | PN ---
Progress Note, Physician Chief Complaint: states he is walking better and with less pain History of Present Illness: Patient is a 43 year old male with a past medical medical history of back pain , lumbar radiculopathy and appendectomy. he comes to the ED on 12/24/18 with complaints of inability to ambulate or work secondary to worsening back and left leg pain. He reports that in the past he has seen by a intensive care specialist and was told that he may need surgical interventions but has not yet followed up. 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 On admission he was unable to ambulate. - Current Medication List Current Medications: Active Medications Cyclobenzaprine HCl (Cyclobenzaprine Hcl) 5 mg PO TID [facility] Last Admin: 12/29/18 06:12 Dose: 5 mg Diazepam (Valium -) 5 mg PO Q24H PRN PRN Reason: spasms Last Admin: 12/28/18 00:09 Dose: 5 mg Docusate Sodium (Colace -) 100 mg PO TID [facility] Last Admin: 12/29/18 06:11 Dose: 100 mg Gabapentin (Neurontin -) 100 mg PO TID [facility] Last Admin: 12/29/18 06:12 Dose: 100 mg Heparin Sodium (Porcine) (Heparin -) 5,000 unit SQ BID [facility] Last Admin: 12/28/18 21:38 Dose: 5,000 unit Lidocaine (Lidoderm Patch -) 1 patch TP DAILY [facility] Last Admin: 12/28/18 10:06 Dose: 1 patch Miscellaneous (Lidoderm Patch Removal) 1 each MC DAILY@2200 [facility] Last Admin: 12/28/18 22:37 Dose: 1 each Oxycodone HCl (Roxicodone -) 10 mg PO Q4H PRN PRN Reason: PAIN LEVEL 7 - 10 Last Admin: 12/29/18 06:10 Dose: 10 mg Polyethylene Glycol (Miralax (For Daily Use) -) 17 gm PO DAILY [facility] Last Admin: 12/28/18 10:11 Dose: 17 grams Prednisone (Deltasone -) 40 mg PO DAILY [facility] Stop: 12/31/18 10:01 Last Admin: 12/28/18 12:43 Dose: 40 mg - Objective Vital Signs: Vital Signs Temperature 98.4 F 12/29/18 06:00 Pulse Rate 95 H 12/29/18 06:00 Respiratory Rate 20 12/29/18 06:00 Blood Pressure 109/69 12/29/18 06:00 O2 Sat by Pulse Oximetry (%) 99 12/27/18 21:00 Constitutional: Yes: Well Nourished, No Distress, Calm Eyes: Yes: WNL, Conjunctiva Clear HENT: Yes: WNL, Atraumatic, Normocephalic Neck: Yes: WNL, Supple, Trachea Midline Cardiovascular: Yes: WNL, Regular Rate and Rhythm Respiratory: Yes: WNL, Regular, CTA Bilaterally Gastrointestinal: Yes: WNL, Normal Bowel Sounds ...Rectal Exam: Yes: Deferred Genitourinary: Yes: WNL Breast(s): Yes: WNL Musculoskeletal: Yes: Back Pain Extremities: Yes: WNL Edema: No Peripheral Pulses WNL: Yes Peripheral Pulses: Left Radial: 2+, Right Radial: 2+, Left Doralis Pedis: 2+, Right Dorsalis Pedis: 2+, Left Femoral: 2+, Right Femoral: 2+ Integumentary: Yes: WNL Neurological: Yes: WNL, Alert, Oriented, Weakness (secondary to pain) ...Motor Strength: WNL Psychiatric: Yes: WNL Labs: CBC, BMP 12/27/18 08:40 12/27/18 08:40 - ....Imaging MRI: Report Reviewed (lumbar spine MRI: (1) at l4-l5 there is a central and bilateral disc herniation larger on the right deforming the sac and appears to be reaching the right L5 root (2) at l3-l4 there is a small central and slightly left sided disc herniation mildly deforming the sac (3) at L5-S1 there is a small central and slightly right sided disc herniation.) Problem List - Problems (1) Lumbar radiculopathy Assessment/Plan: Lumbar X ray without acute fracture. Lumbar spine with multiple disc herniations seen on imaging. see above. physical therapy following and patient was able to ambulate 15 feet today. manage pain with lidocaine patches, gabapentin, flexiril and oxycodone prn c/w prednisone 40mg daily x 4 days and assess for improvement. maintain fall risk precautions. Neurosurgery following Code(s): M54.16 - RADICULOPATHY, LUMBAR REGION (2) Leukocytosis Assessment/Plan: resolved Code(s): D72.829 - ELEVATED WHITE BLOOD CELL COUNT, UNSPECIFIED (3) Neuropathy Assessment/Plan: on gabapentin, pain management Code(s): G62.9 - POLYNEUROPATHY, UNSPECIFIED (4) Prophylactic measure Assessment/Plan: FEN tolerates po monitor electrolytes DVT heparin bid Dispo maintain as inpatient full code discharge planning Code(s): Z29.9 - ENCOUNTER FOR PROPHYLACTIC MEASURES, UNSPECIFIED Visit type - Emergency Visit Emergency Visit: Yes ED Registration Date: 12/24/18 Care time: The patient presented to the Emergency Department on the above date and was hospitalized for further evaluation of their emergent condition. - New Patient This patient is new to me today: Yes Date on this admission: 12/30/18 - Critical Care Critical Care patient: No - Discharge Referral Referred to [facility] Med P.C.: No
[2018-12-29] MEDS: LIDOCAINE 5% TOPICAL PATCH TP SCH (10:31)
[2018-12-29] MEDS: HEPARIN NA (PORCINE) 5,000 UNITS/ML 1ML VIAL SQ SCH ×2 (10:32→21:46)
[2018-12-29] MEDS: predniSONE 20 MG TABLET (UD) PO SCH (10:32)
[2018-12-29] MEDS: POLYETHYLENE GLYCOL 3350 119 GM BTL PO SCH (10:32)
[2018-12-29 11:01] LABS: BASO % 0.2 % (0-2.0); EOS % 1.5 % (0-4.5); HEMATOCRIT 44.7 % (35.4-49); HEMOGLOBIN 15.3 GM/dL (11.7-16.9); LYMPH % 25.9 % (8-40); MCH 30.2 pg (25.7-33.7); MCHC 34.1 g/dl (32.0-35.9); MEAN CELL VOLUME 88.7 fl (80-96); MEAN PLT VOLUME 8.5 fl (7.5-11.1); MONO % 7.2 % (3.8-10.2); NEUT % 65.2 % (42.8-82.8); PLATELET COUNT 265 K/MM3 (134-434); RBC 5.04 M/mm3 (4.00-5.60); RDW 13.2 % (11.9-15.9)
[2018-12-29 11:23] LABS: ALBUMIN 3.8 g/dl (3.4-5.0); BILIRUBIN,TOTAL 1.2 mg/dL (0.2-1); BLOOD UREA NITROGEN 18.7 mg/dL (7-18); CALCIUM 9.9 mg/dL (8.5-10.1); CREATININE 1.1 mg/dL (0.55-1.3); MAGNESIUM 2.4 mg/dL (1.8-2.4); POTASSIUM 4.1 mmol/L (3.5-5.1); TOT PROT 7.7 g/dl (6.4-8.2)
[2018-12-29] MEDS ORDERED: PT OWN MED DRAWER 7, Y5N ONE ×3 (15:24→21:26)
[2018-12-29] MEDS: LIDOCAINE PATCH REMOVAL MC SCH (22:07)
[2018-12-30] MEDS: GABAPENTIN 100 MG CAPSULE (FP) PO SCH ×2 (06:34→14:16)
[2018-12-30] MEDS: DOCUSATE SODIUM 100 MG CAPSULE (FP) PO SCH ×2 (06:34→14:16)
[2018-12-30] MEDS: CYCLOBENZAPRINE HCL 5 MG TABLET PO SCH ×2 (06:34→14:16)
--- NOTE | 2018-12-30 08:19 | PN ---
Progress Note, Physician - Current Medication List Current Medications: Active Medications Cyclobenzaprine HCl (Cyclobenzaprine Hcl) 5 mg PO TID [facility] Last Admin: 12/30/18 06:34 Dose: 5 mg Diazepam (Valium -) 5 mg PO Q24H PRN PRN Reason: spasms Last Admin: 12/28/18 00:09 Dose: 5 mg Docusate Sodium (Colace -) 100 mg PO TID [facility] Last Admin: 12/30/18 06:34 Dose: 100 mg Gabapentin (Neurontin -) 100 mg PO TID [facility] Last Admin: 12/30/18 06:34 Dose: 100 mg Heparin Sodium (Porcine) (Heparin -) 5,000 unit SQ BID [facility] Last Admin: 12/29/18 21:46 Dose: 5,000 unit Lidocaine (Lidoderm Patch -) 1 patch TP DAILY [facility] Last Admin: 12/29/18 10:31 Dose: 1 patch Miscellaneous (Lidoderm Patch Removal) 1 each MC DAILY@2200 [facility] Last Admin: 12/29/18 22:07 Dose: 1 each Oxycodone HCl (Roxicodone -) 10 mg PO Q4H PRN PRN Reason: PAIN LEVEL 7 - 10 Last Admin: 12/29/18 21:55 Dose: 10 mg Polyethylene Glycol (Miralax (For Daily Use) -) 17 gm PO DAILY [facility] Last Admin: 12/29/18 10:32 Dose: 17 grams Prednisone (Deltasone -) 40 mg PO DAILY [facility] Stop: 12/31/18 10:01 Last Admin: 12/29/18 10:32 Dose: 40 mg - Objective Vital Signs: Vital Signs Temperature 98.4 F 12/30/18 06:00 Pulse Rate 89 12/30/18 06:00 Respiratory Rate 20 12/30/18 06:00 Blood Pressure 110/55 L 12/30/18 06:00 O2 Sat by Pulse Oximetry (%) 100 12/29/18 21:00 Labs: CBC, BMP 12/29/18 10:00 12/29/18 10:00 Problem List - Problems (1) Lumbar radiculopathy Code(s): M54.16 - RADICULOPATHY, LUMBAR REGION (2) Leukocytosis Code(s): D72.829 - ELEVATED WHITE BLOOD CELL COUNT, UNSPECIFIED (3) Neuropathy Code(s): G62.9 - POLYNEUROPATHY, UNSPECIFIED (4) Prophylactic measure Code(s): Z29.9 - ENCOUNTER FOR PROPHYLACTIC MEASURES, UNSPECIFIED
[2018-12-30 09:08] LABS: BASO % 0.3 % (0-2.0); EOS % 1.3 % (0-4.5); HEMATOCRIT 41.2 % (35.4-49); HEMOGLOBIN 14.2 GM/dL (11.7-16.9); LYMPH % 31.6 % (8-40); MCH 30.4 pg (25.7-33.7); MCHC 34.4 g/dl (32.0-35.9); MEAN CELL VOLUME 88.4 fl (80-96); MEAN PLT VOLUME 8.6 fl (7.5-11.1); MONO % 6.9 % (3.8-10.2); NEUT % 59.9 % (42.8-82.8); PLATELET COUNT 249 K/MM3 (134-434); RBC 4.66 M/mm3 (4.00-5.60); RDW 13.2 % (11.9-15.9)
[2018-12-30] MEDS: LIDOCAINE 5% TOPICAL PATCH TP SCH (09:25)
[2018-12-30] MEDS: predniSONE 20 MG TABLET (UD) PO SCH (09:25)
[2018-12-30] MEDS: HEPARIN NA (PORCINE) 5,000 UNITS/ML 1ML VIAL SQ SCH (09:25)
[2018-12-30] MEDS: oxyCODONE HCL 5 MG TABLET PO PRN (09:34)
[2018-12-30] MEDS: POLYETHYLENE GLYCOL 3350 119 GM BTL PO SCH (09:37)
[2018-12-30 10:35] LABS: ALBUMIN 3.6 g/dl (3.4-5.0); BILIRUBIN,TOTAL 0.8 mg/dL (0.2-1); BLOOD UREA NITROGEN 16.2 mg/dL (7-18); CALCIUM 9.1 mg/dL (8.5-10.1); CREATININE 0.9 mg/dL (0.55-1.3); MAGNESIUM 2.3 mg/dL (1.8-2.4); POTASSIUM 4.2 mmol/L (3.5-5.1); TOT PROT 7.3 g/dl (6.4-8.2)
--- NOTE | 2018-12-30 13:06 | DS ---
Physical Exam: SUBJECTIVE: Patient seen and examined OBJECTIVE: Vital Signs Period Temp Pulse Resp BP Sys/Gordon Pulse Ox Last 24 Hr 97.4 F-98.6 F 78-103 20-20 110-141/55-91 100 PHYSICAL EXAM GENERAL: The patient is awake, alert, and fully oriented, in no acute distress. HEAD: Normal with no signs of trauma. EYES: PERRL, extraocular movements intact, sclera anicteric, conjunctiva clear. ENT: Ears normal, nares patent, oropharynx clear without exudates, moist mucous membranes. NECK: Trachea midline, full range of motion, supple. LUNGS: Breath sounds equal, clear to auscultation bilaterally, no wheezes, no crackles, no accessory muscle use. HEART: Regular rate and rhythm, S1, S2 without murmur, rub or gallop. ABDOMEN: Soft, nontender, nondistended, normoactive bowel sounds, no guarding, no rebound, no hepatosplenomegaly, no masses. EXTREMITIES: 2+ pulses, warm, well-perfused, no edema. NEUROLOGICAL: Cranial nerves II through XII grossly intact. Normal speech, gait not observed. PSYCH: Normal mood, normal affect. SKIN: Warm, dry, normal turgor, no rashes or lesions noted. LABS Laboratory Results - last 24 hr 12/30/18 12/30/18 08:30 08:30 WBC 10.0 RBC 4.66 Hgb 14.2 Hct 41.2 MCV 88.4 MCH 30.4 MCHC 34.4 RDW 13.2 Plt Count 249 MPV 8.6 Absolute Neuts (auto) 6.0 Neutrophils % 59.9 Lymphocytes % 31.6 D Monocytes % 6.9 Eosinophils % 1.3 Basophils % 0.3 Nucleated RBC % 0 Sodium 137 Potassium 4.2 Chloride 102 Carbon Dioxide 28 Anion Gap 7 L BUN 16.2 Creatinine 0.9 Est GFR (CKD-EPI)AfAm 120.81 Est GFR (CKD-EPI)NonAf 104.24 Random Glucose 98 Calcium 9.1 Magnesium 2.3 Total Bilirubin 0.8 AST 36 ALT 121 H Alkaline Phosphatase 73 Total Protein 7.3 Albumin 3.6 HOSPITAL COURSE: Date of Admission:12/24/18 Date of Discharge: 12/30/18 Minutes to complete discharge: 35 Discharge Summary Problems reviewed: Yes Reason For Visit: BACK PAIN Current Active Problems Ambulatory dysfunction (Acute) Hyperglycemia (Acute) Leukocytosis (Acute) Lumbar radiculopathy (Acute) Neuropathy (Acute) Prophylactic measure (Acute) - Instructions Diet, Activity, Other Instructions: You were admitted for lower back pain. You do not need surgery or an epidural injection. Sitting will make the pain worse. Walking will make it better. Light exercise until pain is better. Take the following medications: oxydocone 10mg every 6 hours as needed for 1 week flexeril 5mg three times a day as needed x 1 week neurontin 100mg three times a day x 1 week prednisone 40mg tomorrow 20mg for 3 days 10mg for 3 days and then no more. Lidoderm patches 1 a day for 1 week Follow with your doctor if the pain is still after 1 week if the pain is still present. Referrals: Kaleb Valverde MD, [facility] [Staff Physician] - 1 Week (call for appointment if pain in no better or follow with your home doctor) Disposition: HOME - Home Medications Comprehensive Discharge Medication List: Ambulatory Orders Cyclobenzaprine HCl 5 mg PO TID #30 tablet 12/30/18 Docusate Sodium [Colace -] 100 mg PO TID capsule 12/30/18 Gabapentin [Neurontin -] 100 mg PO TID #30 capsule 12/30/18 Lidocaine 5% Patch [Lidoderm -] 1 patch TP DAILY #7 patch 12/30/18 oxyCODONE HCL [Roxicodone -] 10 mg PO Q6H PRN #30 tablet MDD 40mg 12/30/18 predniSONE [Deltasone -] 10 mg PO DAILY #14 tablet 12/30/18 Problem List - Problems (1) Lumbar radiculopathy Assessment/Plan: Lumbar X ray without acute fracture. Lumbar spine with multiple disc herniations seen on imaging. see above. physical therapy following and patient was able to ambulate 15 feet today. manage pain with lidocaine patches, gabapentin, flexiril and oxycodone prn - overall improving on this regimen. will continue prednisone 40mg with taper maintain fall risk precautions. At this time, there is no acute Neurosurgical intervention which is indicated or planned. This was described to the patient who was in agreement. Code(s): M54.16 - RADICULOPATHY, LUMBAR REGION (2) Leukocytosis Assessment/Plan: resolved Code(s): D72.829 - ELEVATED WHITE BLOOD CELL COUNT, UNSPECIFIED (3) Neuropathy Assessment/Plan: c/w on gabapentin, pain management Code(s): G62.9 - POLYNEUROPATHY, UNSPECIFIED (4) Prophylactic measure Code(s): Z29.9 - ENCOUNTER FOR PROPHYLACTIC MEASURES, UNSPECIFIED This patient is new to me today: No Emergency Visit: Yes ED Registration Date: 12/24/18 Care time: The patient presented to the Emergency Department on the above date and was hospitalized for further evaluation of their emergent condition. Critical Care patient: No - Discharge Referral Referred to [facility] Med [facility] No
[2018-12-30 15:32] VITALS: BP 142/71; PULSE 98; TEMP 97.5
== END 2018-12-30 16:18 | disposition home or self-care (01) | DRG 347 ==
LOC: JER 07:26 → JERBED 10:37 → J5S 15:33
PROVIDERS: ADMIT Internal Medicine; ATTEND Nurse Practitioner Acute Care
DX: M54.16 Radiculopathy, lumbar region (principal); M54.5 Low back pain; R73.9 Hyperglycemia, unspecified; G62.9 Polyneuropathy, unspecified; D72.829 Elevated white blood cell count, unspecified; R26.2 Difficulty in walking, not elsewhere classified
CPT/HCPCS: 36415; 72100-TC-FY; 72148-TC; 73630-TC-LT; 80053; 81003; 83036; 83735; 85025; 87086; 97116-GP; 97161-GP; 99282-25; J1644; J7030; Q2036